=== PATIENT | female | born 2005 | race Caucasian/White ===

== ENCOUNTER 2024-05-07 10:25 | Emergency (ER) | payer BC, SELFPAY ==
[2024-05-07 10:42] VITALS: BP 109/68
--- NOTE | 2024-05-07 10:59 | ED.GENMED ---
History of Present Illness
General
Chief Complaint: Abdominal Symptoms
Source: patient and family
Time Seen by Provider: 05/07/24 10:47
Travel History
Have you had any contact with someone who has COVID-19?: No
Do you have any symptoms of coronavirus? Fever > 100 degrees, chills, cough, shortness of breath, sore throat, loss of taste or smell, muscle aches, or headache?: No
History of Present Illness
History of Present Illness:
This patient is a 18-year-old female presents emergency department with complaints of right upper quadrant pain that began at around 8 AM while she was sleeping and continues. She notes that it is tender to touch and persistent, associated with
nausea and vomiting x 1 that was nonbloody. She denies fever, chills, back or flank pain, chest pain, shortness of breath, vaginal discharge or bleeding, dysuria, urgency, frequency, hematuria, or other complaints. Patient saw her primary care
doctor today and was referred to the emergency department for further workup. Patient states that she had similar symptoms back in October when she was in college, was diagnosed with a UTI and eventually got better with antibiotics
Past History
Past History
ED Past Medical History: None
ED Past Surgical History: None
Social History
Tobacco: Non-smoker
Alcohol: None
Drug: None
Personal: Single
Employment: Student
Phy Exam
Physical Exam
Physical Exam:
GENERAL: Alert , in no apparent distress
EYE: pupils equal and reactive
NECK: Supple, no significant adenopathy.
ENT: o/p clr, mmm.
CARDIAC: Regular rate and rhythm .
LUNGS: Clear breath sounds bilaterally, no acute respiratory distress, no wheezes/rales/rhonchi
ABDOMEN: Soft, mild to moderate right upper tenderness, no r/g, no cvat
NEUROLOGICAL: Alert and oriented, no focal neuro deficits
SKIN: Warm and dry, skin intact.
MUSCULOSKELETAL: No edema, well perfused.
PSYCH: Normal and appropriate interaction.
Course
Orders/Labs/Results
Orders:
Orders
05/07/24 10:49
Test Result ONCE
05/07/24 10:59
US Abdomen Complete/Upper Urgent
Comment:
Reason For Exam: ruq pain
05/07/24 11:02
Complete Blood Count/No Diff Urgent
Urinalysis Reflex To Culture Urgent
Date Specimen was Collected: 05/07/24
Time Specimen was Collected: 10:52
Urine Microscopic Reflex Cult Urgent
Urine Culture Urgent
NERI Source: U
Specimen Description:
Date Specimen was Collected: 05/07/24
Time Specimen was Collected: 10:52
05/07/24 11:28
Comprehensive Metabolic Panel Urgent
HCG, Serum Qualitative Screen Urgent
Lipase Urgent
Abnormal Lab Results
05/07/24 05/07/24
11:02 11:28
WBC 10.9 H 10^3/uL
(4.8-10.8)
MPV 10.9 H fL
(7.4-10.4)
Carbon Dioxide 19 L mmol/L
(22-30)
Urine Ketones Trace A
(Negative)
Ur Occult Blood Reflex 4+ A
(Negative)
Leukocyte Esterase Rfl Trace A
(Negative)
Urine RBC 7-10 A /HPF
(0-2)
Urine Bacteria (Reflex) Many A
(Negative)
05/07/24 11:02
05/07/24 11:28
Vital Signs
Initial and Last Documented VS:
Initial Vital Signs
Temp Pulse Resp BP Pulse Ox
98.3 F 61 16 109/68 98
05/07/24 10:42 05/07/24 10:42 05/07/24 10:42 05/07/24 10:42 05/07/24 10:42
Last Documented Vital Signs
Temp Pulse Resp BP Pulse Ox
98.3 F 61 16 109/68 98
05/07/24 10:42 05/07/24 10:42 05/07/24 10:42 05/07/24 10:42 05/07/24 10:42
*Critical Care Note
Total Time (30-74mins, 75-104mins- exclusive of procedures): Not Applicable
Update Note
Update Note:
Patient presents to the Emergency Department with ___right upper quadrant abdominal pain
Number and Complexity of Problems Addressed at the Encounter
� Chronic conditions affecting care:
� Acute Exacerbation and/or Progression of Chronic Illness:
� Differential Diagnosis includes: But not limited to cholelithiasis, cholecystitis, hepatitis, gastroenteritis, etc.
Amount and/or Complexity of Data to be Reviewed and Analyzed
� I performed an independent evaluation of and my interpretation is:
EKG:
CT:
Xrays:
Laboratory Studies: Generally unremarkable
Other: Ultrasound read by radiology unremarkable
� Review of other/old records reveals:
� Clinical information was obtained by an independent historian: Mom who is bedside
� Prescriptions/Medications Considered but not given:
� Further testing considered but not performed:
Risk of Complications and/or Morbidity or Mortality of Patient Management
� Social determinants of health affecting care:
� Discussion with other providers (PCP, Hospitalists, Consultants, etc):
� Escalation of care including admission/observation vs risk of discharge considered: 2:11 PM patient comfortable, watching TV, no acute distress. No tenderness palpation noted at this time, no vomiting. Unclear etiology for
patient's pain however doubt acutely urgent/worrisome event given unremarkable workup here, encourage close follow-up and discussed with them reasons to return the ER.
ED Attending Note
-
Portions of this chart may have been created with voice recognition software.� Occasional wrong word or��sound alike� substitutions may have occurred due to the inherent limitations of voice recognition software.
Discharge Plan
Departure
Patient Disposition: Home (Routine Discharge)
Date of Disposition: 05/07/24
Time of Disposition: 14:12
Patient with high blood pressure during this ER visit?: No
Condition: Good
Discharge Problem:
Abdominal pain
Instructions: Abdominal Pain
Referrals:
Agueda Diaz MD [Active] - Next open appointment
Luisana Ball CRNP [Family Provider] - Follow up in 2-3 days
Activity Restrictions/Additional Instructions:
IF YOU DEVELOP RECURRENT PAIN, NEW PAIN, NAUSEA, VOMITING, FEVER, CHEST PAIN, TROUBLE BREATHING, OR OTHER WORRISOME SIGNS, GO TO THE ER IMMEDIATELY!
Interventions
Interventions:
*Risk Screen - Suicide Last Done: 05/07/24 11:08
*General Assessment Last Done: 05/07/24 11:08
*Neglect/Abuse Screening Last Done: 05/07/24 11:08
ED- Fall Risk Assessment Last Done: 05/07/24 11:08
*ED COVID-19 Vaccine History Last Done: 05/07/24 10:42
BX-Qubokx-Klpyowndwf Assessment Last Done: 05/07/24 11:08
Discharge Date and Time
Print Language: EQUATORIAL GUINEAN
[2024-05-07 11:08] VITALS: BMI 19.8
[2024-05-07 11:20] LABS: Hematocrit 39.4 % (37.0-47.0); Hemoglobin 13.6 g/dL (12.0-16.0); Mean Corp Hgb Conc. 34.5 g/dL (33.0-37.0); Mean Corpuscular Hgb 30.8 pg (27.0-31.0); Mean Corpuscular Volume 89.3 fL (81.0-99.0); Mean Platelet Volume 10.9 fL (7.4-10.4); Platelet Count 192 10^3/uL (130-400); Red Blood Cell Count 4.41 10^6/uL (4.20-5.40); White Blood Cell Count 10.9 10^3/uL (4.8-10.8)
[2024-05-07 11:24] LABS: Urine Albumin Negative (Neg - Trace); Urine Bilirubin Negative (Negative); Urine Character Slightly Cloudy (Clear); Urine Color Yellow; Urine Glucose Negative (Negative); Urine Ketone Trace (Negative); Urine Leukocyte Trace (Negative); Urine Nitrite Negative (Negative); Urine Occult Blood 4+ (Negative); Urine Specific Gravity 1.015 (<1.030); Urine Urobilinogen Negative (Neg - 1+)
[2024-05-07 11:40] LABS: Urine Mucus Many; Urine Squamous Cell >30 /LPF (Few)
[2024-05-07 11:42] LABS: Urine Bacteria Many (Negative)
[2024-05-07 11:58] LABS: HCG, Serum Qualitative Screen Negative
[2024-05-07 12:04] LABS: ALT (SGPT) 12 U/L (0-35); AST (SGOT) 23 U/L (14-36); Albumin 4.1 g/dl (3.5-5.0); Alkaline Phosphatase 69 U/L (38-126); Blood Urea Nitrogen 10 mg/dl (7-17); Calcium 9.2 mg/dl (8.4-10.2); Carbon Dioxide 19 mmol/L (22-30); Chloride 106 mmol/L (98-107); Estimated Creatinine Clearance > 125 ml/min; Glucose 93 mg/dl (70-99); Potassium 4.1 mmol/L (3.5-5.1); Sodium 136 mmol/L (135-145); Total Bilirubin 1.1 mg/dl (0.2-1.3); Total Protein 6.9 g/dl (6.3-8.2); eGFR > 60.00
[2024-05-07 12:26] LABS: Lipase 73 U/L (23-300)
[2024-05-07 14:44] VITALS: BP 121/70
== END 2024-05-07 14:45 | disposition home or self-care (01) ==
LOC: EMR 10:25
PROVIDERS: EMERGENCY PHYSICIAN Emergency Medicine; FAMILY PHYSICIAN Nurse Practitioner
DX: R11.2 Nausea with vomiting, unspecified (principal)
CPT/HCPCS: 99284; 76700; 80053; 81003; 81015; 83690; 84703; 85027; 87086

== ENCOUNTER → 2024-06-14 07:45 | Outpatient (REF) | payer BC, SELFPAY | LOC: RAD 07:45 | PROVIDERS: ATTENDING PHYSICIAN Nurse Practitioner | DX: R10.11 Right upper quadrant pain (principal) | CPT/HCPCS: 78227; A9537; J2805 ==